=== PATIENT | male | born 1955 | race Caucasian/White ===

== ENCOUNTER 2017-05-29 21:49 | Emergency (ER) | payer BC ==
[2017-05-29] MEDS ORDERED: Ondansetron HCl/PF 4 MG/2 ML Vial ONE ×2 (23:25→23:26)
[2017-05-29] MEDS ORDERED: Morphine 2 MG/ML SYRINGE ONE (23:44)
[2017-05-30] MEDS ORDERED: Heparin 10,000 UNITS/ 10 ML VIAL SLOW IVP SCH (00:30)
[2017-05-30] MEDS ORDERED: Heparin 25,000 units/D5W 500 ML IV SCH (00:30)
[2017-05-30 01:57] LABS: #Monocytes 1.2 thou/uL (0.11-0.59); #Neutrophils 16.3 thou/uL (1.40-6.50); %Basophils 0.1 % (0.0-1.0); %Eosinophils 0.2 % (0.0-10.0); %Lymphocytes 5.6 % (21.0-51.0); %Monocytes 6.6 % (0.0-10.0); %Neutrophils 87.6 % (42.0-75.0); Hemoglobin 13.8 g/dL (14.0-18.0); Mean Corpuscular HGB CONC 33.6 g/dL (32.0-36.0); Mean Corpuscular Hemoglobin 30.3 pg (27.0-31.0); Mean Corpuscular Volume 90.2 fl (80.0-94.0); Mean Platelet Volume 7.4 fL (7.4-10.4); Platelet Count 171 thou/uL (130-400); RBC Distribution Width 12.5 % (11.5-14.5); Red Blood Cell (RBC) Count 4.56 mill/uL (4.70-6.10); White Blood Cell (WBC) Count 18.7 thou/uL (4.8-10.8)
[2017-05-30 02:08] LABS: Prothrombin Time 13.3 SEC (12.0-14.7)
[2017-05-30] MEDS ORDERED: Ondansetron HCl/PF 4 MG/2 ML Vial ONE (02:15)
--- NOTE | 2017-05-30 04:18 | CON ---
EMERGENCY REPORT NOTE DATE OF CONSULTATION: 05/30/2017 I have spent more than 2 hours in the emergency department with this patient. HISTORY OF PRESENT ILLNESS: Mr. Tellez is a 62-year-old gentleman who has a history of abdominal aort ic aneurysm repaired in [place] at [facility] by Dr. Padgett. He has gone back at least twice and re stented once for an endoleak and once for occlusive disease according to the patient. Apparently, th is morning the patient had a vomiting episode and then acutely began to experience ischemic type symp toms in both of his legs. He called the ambulance, which took him to the [facility]. He wa s evaluated with a CT angiogram at [facility]. A copy of this CT scan was not sent with the patient, but I was able to call in a radiologist to be able to show me the scans in their reading wasserman ite. On the scan, the aneurysm has been fixed endovascularly with a cross limb technique. The graft has s uprarenal fixation bars, which extend up past the celiac axis. The anatomic left limb of the graft h as a trickle of flow through it, but it is nearly occluded. The right limb of the graft is completel y occluded. Both iliac vessels are fed from internal iliacs into the external iliac, which then pass ed out of the pelvis with normal runoff into his lower extremities. The patient received 5000 unit b olus of heparin - this was not included in the patient's records, so we had to call [place] to get any detailed records of medication administration and timing. This occurred at approximately 3:00 p .m. He had been kept on a drip at 1000 units an hour since. I cannot find recorded record of Plavix being administered, but there was in conversations with the emergency department, the rumor that the patient has also been loaded with Plavix in [place]. There was difficulty in having the patient transfer back to Dr. Padgett at [facility]. Dr. Padgett apparently was happy to have the patient the re, but the transfer center was unable to have him transferred due to a bed situation. The patient w as therefore transferred here. After I have evaluated him, I really have only graft explant with aor tobifemoral bypass to offer him which is certainly much more invasive and carries a significant morta lity with it due to the extension of the suprarenal fixation bars. In my experience, the aorta is he avily damaged by removing these grafts and would potentially require the replacement of the aorta up above the celiac axis. The administration at [facility] has been able to convince [facility] to make a bed for this patien t to be able to be transferred back to Dr. Padgett, so he can be hopefully endovascularly managed wit h thrombolysis and repair of whatever has caused his graft to thrombose. The patient's history has b een gleaned from his chart. PAST MEDICAL HISTORY: Abdominal aortic aneurysm. PAST SURGICAL HISTORY: As above. CURRENT MEDICATIONS: Noted in his chart from [place]. ALLERGIES: None. PHYSICAL EXAMINATION: GENERAL: Patient was asleep on my arrival. He has had bilateral lower extremity pain, both in the t highs and calves. VITAL SIGNS: His heart rate is 65 and regular, blood pressure is 130/72, saturations are 98% on room air. LUNGS: Clear bilaterally. HEART: Rhythm is regular without murmur. ABDOMEN: Soft and nontender. SKIN: He has no scars. VASCULAR: He has palpable carotid and radial pulses bilaterally. I cannot palpate pulses in the rem ainder of his vascular tree. Femoral pulses are dopplerable. I can also lightly Doppler a popliteal pulse. ASSESSMENT AND PLAN: An unfortunate 62-year-old gentleman status post endovascular repair of abdomin al aortic aneurysm with now an occluded right limb of the graft and a near occlusion of the left limb of the graft. He will be maintained on a heparin drip. The administration has been able to arrange , transfer back to [facility] to Dr. Padgett for further management. He, in my opinion, will be bett er served being managed where records of his previous interventions are and with the skill set that Elis Padgett possess.
== END 2017-05-30 02:56 | disposition short-term general hospital (02) ==
LOC: ERS 21:49
DX: I74.5 Embolism and thrombosis of iliac artery (principal); I10 Essential (primary) hypertension; G89.29 Other chronic pain; M54.9 Dorsalgia, unspecified; K58.9 Irritable bowel syndrome, unspecified; Z79.899 Other long term (current) drug therapy
CPT/HCPCS: 36415; 51701; 85025; 85610; 85730; 96365; 96375; 96376; J1644; J2270; J2405